=== PATIENT | female | born 1930 | race Hispanic/Latino ===

== ENCOUNTER 2017-07-26 08:00 | Day surgery (SDC) | payer MEDICARE, MEDICAID ==
[2017-07-25 09:20] VITALS: BMI 26.5
[2017-07-26 08:36] LABS: BASO # 0.02 K/mm3 (0.0-2.0); BASO % 0.3 % (0.0-3.0); EOS # 0.1 (0.0-0.7); GRAN # 4.35 (1.4-6.5); GRAN % 71.2 % (50.0-68.0); HEMATOCRIT 40.2 % (36.0-48.0); LYMPH # 1.2 (1.2-3.4); LYMPH % 19.6 % (22.0-35.0); MEAN CELL VOLUME 92.2 fl (80.0-105.0); MEAN CORPUSCULAR HEMOGLOBIN 30.3 pg (25.0-35.0); MEAN CORPUSCULAR HGB CONC 32.8 g/dl (31.0-37.0); MEAN PLATELET VOLUME 10.1 fl (7.0-11.0); MONO # 0.4 (0.1-0.6); MONO % 6.9 % (1.0-6.0); RED CELL DISTRIBUTION WIDTH 13.7 % (11.5-14.5); WHITE BLOOD COUNT 6.1 10^3/ul (4.5-11.0)
[2017-07-26 08:43] LABS: CALCIUM 9.9 mg/dL (8.4-10.5); POTASSIUM 4.6 mmol/L (3.6-5.0)
[2017-07-26 08:44] LABS: INR 1.13 (0.93-1.08); PARTIAL THROMBOPLASTIN TIME 30.1 Seconds (25.1-36.5)
[2017-07-26] MEDS ORDERED: Lidocaine 2% Inj (20ml) ONE (08:45)
[2017-07-26 09:02] VITALS: RESP 18
[2017-07-26] MEDS ORDERED: Midazolam 2 MG/2 ML VIAL ONE (09:25)
[2017-07-26] MEDS ORDERED: Metoprolol 1 mg/ml Inj IVP ONE (10:58)
[2017-07-26 11:28] VITALS: TEMP 97.4
[2017-07-26 14:45] VITALS: O2SAT 96
[2017-07-26 15:13] VITALS: BP 141/53; PULSE 82
--- NOTE | 2017-07-26 19:55 | CARD ---
APPROVED REPORT EKG Measurement Heart [id number] <Conclusion> Normal sinus rhythm Right bundle branch block Left anterior fascicular block Bifascicular block Left ventricular hypertrophy with repolarization abnormality Cannot rule out Septal infarct, age undetermined Abnormal ECG
--- NOTE | 2017-08-10 19:14 | CARD ---
APPROVED REPORT HISTORY 65%. (EF Method: RADIONUCLIDE), peripheral vascular disease, previous diagnostic cath, tobacco history() : The patient is a former smoker , previous PCI (The PCI date was 09/29/2013), hypertension , dyslipidemia . INDICATION The indication(s) include : positive stress test, stable angina , chest pain. CASE TECHNIQUE The patient was brought electively to the Cardiac Catheterization Laboratory in a fasting state and was prepped and draped in a sterile manner. The right femoral groin was infiltrated with 2% Lidocaine subcutaneous anesthesia. A 6 Fr x 11 cm Selena sheath was inserted using coronary diagnostic catheters. The left coronary system was accessed and visualized with a Diagnostic catheter. The right coronary system was accessed and visualized with a Diagnostic catheter. The left ventricle was accessed and visualized with a Diagnostic catheter. Left ventricular/Aortic Valve gradient assessed on pullback. Left ventriculogram was performed in GARCIA projection. Closure device was deployed with a 6 Fr / 7 Fr MynxGrip without any complications. Hemostasis was obtained with manual pressure following sheath removal without any complications. The patient tolerated the procedure well and there were no complications associated with the procedure. Vessel Analysis The patient's coronary anatomy is right dominant. The left main coronary artery is a medium size vessel . There is a 0% stenosis . The left main bifurcates to the left anterior descending and circumflex. The left anterior descending artery is a medium size vessel . There is a 30% stenosis in the mid segment. The first diagonal branch is a small size vessel . The circumflex artery is a small size vessel . There is a 50% stenosis in the distal segment. The right coronary artery is a large size vessel . There is a 30% stenosis in the ostial segment. Patent mid segment stent noted. The right posterior descending artery is a medium size vessel . There is a 30% stenosis in the mid segment. Left Ventricle The left ventricle is normal in size with normal contractility. There was no cardiomyopathy. The left ventricular ejection fraction is estimated to be 60%. The left ventricular end diastolic pressure is 24 mmHg. There was no gradient across the aortic valve upon pullback. Conclusion Mild to moderate CAD with patent RCA stent with normal LVEF of 60% Recommendations Aggressive Medical Therapy
== END 2017-07-26 15:55 | disposition home or self-care (01) ==
LOC: CATH 08:00
PROVIDERS: ATTEND Internal Medicine Cardiovascular Disease
DX: I25.119 Atherosclerotic heart disease of native coronary artery with unspecified angina pectoris (principal); I10 Essential (primary) hypertension; I38 Endocarditis, valve unspecified; I50.9 Heart failure, unspecified; I73.9 Peripheral vascular disease, unspecified; E03.9 Hypothyroidism, unspecified; D64.9 Anemia, unspecified; Z96.642 Presence of left artificial hip joint; E78.5 Hyperlipidemia, unspecified; Z87.891 Personal history of nicotine dependence; Z95.5 Presence of coronary angioplasty implant and graft; Z82.49 Family history of ischemic heart disease and other diseases of the circulatory system; R94.39 Abnormal result of other cardiovascular function study
CPT/HCPCS: 36415; 80048; 80061; 85025; 85610; 85730; 86850; 86900; 93005; 93458; 99152; 99153; C1760; C1769; C2629; J0360; J1644; J2250; J3010; J7040; Q9967

== ENCOUNTER 2018-04-05 14:56 | Observation (INO) | payer MEDICARE, MEDICAID ==
[2018-04-05 15:43] VITALS: BMI 21.3
--- NOTE | 2018-04-05 15:49 | ED PDOC ---
Arrival/HPI - General Historian: Patient, Family - History of Present Illness Time/Duration: 4-6 hours Symptom Onset: Sudden Symptom Course: Unchanged Context: Standing, Exertion <Ovidio Dolan - Last Filed: 04/05/18 18:42> <Antionette Dumont - Last Filed: 04/05/18 18:47> - General Chief Complaint: Syncope Time Seen by Provider: 04/05/18 15:07 - History of Present Illness Narrative History of Present Illness (Text): 04/05/18 15:45 Patient is an 87 year old female with PMH of HTN, hypothyroidism, CAD, and AFib who presents to ED after a fall this morning six hours ago. During the fall this morning, she states that she had a syncopal episode and does not remember falling. She was getting ready to feed her cat at the time and then woke up with her head on the cat bowl. She does not remember anything in between. Two weeks ago, she had a similar fall on to her R side on to a dresser drawer. At that time, she remembered falling; she did not have a syncopal episode. She admits to R sided pain worse with movement and exertion. It is not worsened when she inhales. She also admits to persistent CATALAN and dizziness since her fall this morning. She otherwise denies fever, chills, chest pain, palpitations, SOB , numbness/tingling in her extremities, or other gait difficulties. (Ovidio Dolan) Past Medical History - Provider Review Nursing Documentation Reviewed: Yes - Travel History Have you recently traveled outside [place] w/in the past 3 mons?: No - Infectious Disease Hx of Infectious Diseases: None - Cardiac Hx Pacemaker: No - Pulmonary Hx Respiratory Disorders: No - Neurological Hx Paralysis: No - HEENT Hx HEENT Disorder: Yes Other/Comment: [place] b/l with b/l hearing aids - Renal Hx Renal Disorder: No - Endocrine/Metabolic Hx Endocrine Disorders: No - Hematological/Oncological Hx Blood Transfusions: No Hx Blood Transfusion Reaction: No - Integumentary Hx Dermatological Disorder: No - Musculoskeletal/Rheumatological Hx Musculoskeletal Disorders: No - Gastrointestinal Hx Gastrointestinal Disorders: No - Genitourinary/Gynecological Hx Genitourinary Disorders: No - Psychiatric Hx Emotional Abuse: No Hx Physical Abuse: No Hx Substance Use: No - Surgical History Hx Coronary Stent: Yes - Anesthesia Hx Anesthesia Reactions: No Hx Malignant Hyperthermia: No - Suicidal Assessment Feels Threatened In Home Enviroment: No <Ovidio Dolan - Last Filed: 04/05/18 18:42> Family/Social History - Physician Review Nursing Documentation Reviewed: Yes Family/Social History: No Known Family HX Smoking Status: Never Smoked Hx Alcohol Use: No Hx Substance Use: No <DolanOvidio - Last Filed: 04/05/18 18:42> Allergies/Home Meds <MagdalenoOvidio - Last Filed: 04/05/18 18:42> <MerariantionetteAntionette Leroy - Last Filed: 04/05/18 18:47> Allergies/Adverse Reactions: Allergies No Known Allergies Allergy (Verified 09/21/16 12:38) Home Medications: Home Meds Medication Instructions Recorded Confirmed Levothyroxine Sodium [Levothroid] 0.05 mg PO DAILY 09/18/13 04/05/18 Clopidogrel [Plavix] 75 mg PO DAILY 10/21/15 04/05/18 Aspirin [Ecotrin] 81 mg PO DAILY 07/25/17 04/05/18 Irbesartan [Avapro] 1 tab PO BID 04/05/18 04/05/18 Metoprolol Tartrate [Lopressor] 1 tab PO BID 04/05/18 04/05/18 Review of Systems - Physician Review All systems were reviewed & negative as marked: Yes - Review of Systems Constitutional: absent: Fatigue, Weight Change, Fevers Eyes: absent: Vision Changes, Photophobia ENT: absent: Hearing Changes, Voice Changes Respiratory: absent: SOB, Cough, Sputum Cardiovascular: absent: Chest Pain, Palpitations, Edema Gastrointestinal: absent: Abdominal Pain, Nausea, Vomiting Genitourinary Female: absent: Dysuria Musculoskeletal: Back Pain (R rib pain with palpation, ecchymosis on R side visualized). absent: Arthralgias Skin: absent: Rash, Pruritis Neurological: Headache, Dizziness. absent: Focal Weakness, Gait Changes, Speech Changes, Facial Droop Endocrine: absent: Diaphoresis Hemo/Lymphatic: absent: Adenopathy Psychiatric: absent: Anxiety, Depression <DolanOvidio gabriel - Last Filed: 04/05/18 18:42> Physical Exam Vital Signs Reviewed: Yes Temperature: Afebrile Blood Pressure: Normal Pulse: Other (irregularly irregular, AFib) Respiratory Rate: Normal Appearance: Positive for: Uncomfortable Pain Distress: Moderate Mental Status: Positive for: Alert and Oriented X 3 - Systems Exam Head: Present: Tenderness (tenderness posteriorly), Ecchymosis (posteriorly) Pupils: Present: PERRL Extroacular Muscles: Present: EOMI Conjunctiva: Present: Normal Ears: Present: Normal Mouth: Present: Moist Mucous Membranes Pharnyx: Present: Normal. No: ERYTHEMA, EXUDATE Nose (External): Present: Atraumatic Neck: Present: Normal Range of Motion. No: Paraspinal Tenderness, JVD Respiratory/Chest: Present: Clear to Auscultation. No: Wheezes, Rales, Rhonchi Cardiovascular: Present: Irregular Rhythm (AFib), Peripheal Pulses Present. No : Rub, Gallop Abdomen: No: Tenderness, Rebound, Guarding Upper Extremity: Present: Normal Inspection. No: Cyanosis, Edema Lower Extremity: Present: Normal Inspection. No: Edema Neurological: Present: CN II-XII Intact, Speech Normal, Motor Func Grossly Intact, Normal Sensory Function, Normal 2Pt Descrimination Skin: Present: Warm, Dry Psychiatric: Present: Alert, Oriented x 3 <Ovidio Dolan - Last Filed: 04/05/18 18:42> Vital Signs Temp Pulse Resp BP Pulse Ox 04/05/18 18:28 98.3 F 69 18 169/77 H 100 04/05/18 14:56 98.2 F 108 H 18 105/45 L 95 Medical Decision Making <Ovidio Dolan - Last Filed: 04/05/18 18:42> - Lab Interpretations I have reviewed the lab results: Yes - RAD Interpretation Hand Router Operator: Radiologist - EKG Interpretation Interpreted by ED Physician: Yes Type: 12 lead EKG <Antionette Dumont - Last Filed: 04/05/18 18:47> ED Course and Treatment: 04/05/18 15:53 -Patient found to have AFib on initial EKG -Given history of 2 falls with head trauma, will obtain head CT, rib series -CBC, CMP, PT/PTT, UA (Ovidio Dolan) 04/05/18 In agreement with resident note, which includes further HPI details. Patient was seen and evaluated with resident, came up with plan and treatment together. Patient presents after episode of syncope. EKG shows afib at 119bpm. Trop x 1 negative. Cxray negative. Rib series read by me as negative but will need to follow-up official read 04/05/18 18:08 CT HEAD WITHOUT CONTRAST: Creator : Eve Will MD COMPARISON: 09/21/2016. FINDINGS: HEMORRHAGE:No intracranial hemorrhage. BRAIN: There are moderate chronic microangiopathic changes. There is no mass, mass effect or abnormal extra-axial fluid collection. VENTRICLES: There is mild age-related global parenchymal volume loss and proportionate enlargement of the ventricles and cortical sulci. CALVARIUM: The skull base and calvarium are normal. PARANASAL SINUSES: There is fluid in the left maxillary sinus. The remaining included paranasal sinuses are clear. MASTOID AIR CELLS: Predominantly clear. OTHER FINDINGS: None. IMPRESSION: No acute intracranial abnormality. Moderate chronic microangiopathic changes and mild age-related global parenchymal volume loss. Fluid in the left maxillary sinus may represent acute sinusitis in the appropriate clinical setting. 04/05/18 18:[address] Mcadams 04/05/18 18:47 (Antionette Dumont) - Lab Interpretations Lab Results: 04/05/18 16:14 04/05/18 16:14 Lab Results 04/05/18 16:14: PT 12.2, INR 1.07, APTT 30.7 04/05/18 16:14: WBC 11.0 D, RBC 4.53, Hgb 14.2, Hct 41.6, MCV 91.8, MCH 31.3, MCHC 34.1, RDW 14.0, Plt Count 236, MPV 10.1, Gran % 74.2 H, Lymph % (Auto) 16.0 L, [place] % (Auto) 8.2 H, Eos % (Auto) 1.4 L, Baso % (Auto) 0.2, Gran # 8.19 H, Lymph # (Auto) 1.8, [place] # (Auto) 0.9 H, Eos # (Auto) 0.2, Baso # (Auto) 0.02 04/05/18 16:14: Sodium 146, Potassium 4.9, Chloride 105, Carbon Dioxide 29, Anion Gap 17, BUN 24 H, Creatinine 1.0, Est GFR ( Amer) > 60, Est GFR ( Non-Af Amer) 52, Random Glucose 136 H, Calcium 10.0, Phosphorus 3.5, Magnesium 2.0, Total Bilirubin 0.6, AST 28, ALT 22, Alkaline Phosphatase 69, Lactate Dehydrogenase 653, Total Creatine Kinase 109, Troponin I 0.02 D, Total Protein 7.8, Albumin 4.7, Globulin 3.1, Albumin/Globulin Ratio 1.5 - RAD Interpretation Radiology Orders: 04/05/18 15:43 HEAD W/O CONTRAST [CT] Stat 04/05/18 15:44 RIBS BILATERAL W/PA CHEST [RAD] Stat - Medication Orders Current Medication Orders: Discontinued Medications Acetaminophen (Tylenol 325mg Tab) 650 mg PO ONCE ONE Stop: 04/05/18 16:05 <Ovidio Dolan - Last Filed: 04/05/18 18:42> - Scribe Statement The provider has reviewed the documentation as recorded by the Scribe <Antionette Dumont - Last Filed: 04/05/18 18:47> - Scribe Statement Leonard Hart Provider Scribe Attestation: All medical record entries made by the Scribe were at my direction and personally dictated by me. I have reviewed the chart and agree that the record accurately reflects my personal performance of the history, physical exam, medical decision making, and the department course for this patient. I have also personally directed, reviewed, and agree with the discharge instructions and disposition. (Antionette Dumont) Disposition/Present on Arrival - Present on Arrival History of DVT/PE: No History of Uncontrolled Diabetes: No Urinary Catheter: No History Surgical Site Infection Following: None <Ovidio Dolan - Last Filed: 04/05/18 18:42> - Present on Arrival Any Indicators Present on Arrival: No - Disposition Have Diagnosis and Disposition been Completed?: Yes Disposition Time: 18:31 Patient Plan: Observation <Antionette Dumont - Last Filed: 04/05/18 18:47> - Disposition Diagnosis: Syncope Disposition: HOSPITALIZED Patient Problems: Current Active Problems Problem Status Onset Syncope Acute Condition: FAIR Discharge Instructions (ExitCare): Syncope (ED) Referrals: Saul Toledo DO [Primary Care Provider] - Follow up with primary Forms: [employer] ([place])
[2018-04-05 16:34] LABS: BASO # 0.02 K/mm3 (0.0-2.0); BASO % 0.2 % (0.0-3.0); EOS # 0.2 (0.0-0.7); EOS % 1.4 % (1.5-5.0); GRAN # 8.19 (1.4-6.5); GRAN % 74.2 % (50.0-68.0); HEMOGLOBIN 14.2 g/dL (12.0-16.0); LYMPH # 1.8 (1.2-3.4); MEAN CELL VOLUME 91.8 fl (80.0-105.0); MEAN CORPUSCULAR HEMOGLOBIN 31.3 pg (25.0-35.0); MEAN CORPUSCULAR HGB CONC 34.1 g/dl (31.0-37.0); MEAN PLATELET VOLUME 10.1 fl (7.0-11.0); MONO # 0.9 (0.1-0.6); MONO % 8.2 % (1.0-6.0); RBC 4.53 10^6/uL (3.5-6.1)
[2018-04-05 16:44] LABS: ALB/GLOB RATIO 1.5 (1.1-1.8); ALBUMIN 4.7 g/dL (3.0-4.8); ALT/SGPT 22 U/L (7-56); AST/SGOT 28 U/L (14-36); BLOOD UREA NITROGEN 24 mg/dL (7-21); GFR AFRICAN-AMERICAN > 60; GFR NON-AFRICAN AMERICAN 52
[2018-04-05 16:47] LABS: INR 1.07; PARTIAL THROMBOPLASTIN TIME 30.7 Seconds (25.1-36.5); PROTHROMBIN TIME 12.2 SECONDS (9.4-12.5)
[2018-04-05 16:56] LABS: TROPONIN I 0.02 ng/mL
--- NOTE | 2018-04-05 17:47 | CT ---
Date of service: 04/05/2018 PROCEDURE: CT HEAD WITHOUT CONTRAST. HISTORY: s/p 2 falls with head trauma COMPARISON: 09/21/2016. TECHNIQUE: Axial computed tomography images were obtained through the head/brain without intravenous contrast. Radiation dose: Total exam DLP = 1031.70 mGy-cm. This CT exam was performed using one or more of the following dose reduction techniques: Automated exposure control, adjustment of the mA and/or kV according to patient size, and/or use of iterative reconstruction technique. FINDINGS: HEMORRHAGE: No intracranial hemorrhage. BRAIN: There are moderate chronic microangiopathic changes. There is no mass, mass effect or abnormal extra-axial fluid collection. VENTRICLES: There is mild age-related global parenchymal volume loss and proportionate enlargement of the ventricles and cortical sulci. CALVARIUM: The skull base and calvarium are normal. PARANASAL SINUSES: There is fluid in the left maxillary sinus. The remaining included paranasal sinuses are clear. MASTOID AIR CELLS: Predominantly clear. OTHER FINDINGS: None. IMPRESSION: No acute intracranial abnormality. Moderate chronic microangiopathic changes and mild age-related global parenchymal volume loss. Fluid in the left maxillary sinus may represent acute sinusitis in the appropriate clinical setting.
[2018-04-05] MEDS ORDERED: Fluticasone Nasal 50 mcg/Spray NS STA (19:32)
[2018-04-05] MEDS: Sodium Chloride 0.45% 1,000 ML IV SCH ×2 (19:40→22:56)
[2018-04-05 19:51] LABS: URINE APPEARANCE CLEAR (CLEAR); URINE COLOR YELLOW (YELLOW); URINE GLUCOSE (UA) NEGATIVE (NEGATIVE)
[2018-04-05 19:52] LABS: URINE BILIRUBIN NEGATIVE (NEGATIVE); URINE BLOOD NEGATIVE (NEGATIVE); URINE LEUKOCYTE ESTERASE SMALL Leu/uL (NEGATIVE); URINE PROTEIN TRACE mg/dL (<30 mg/dL); URINE UROBILINOGEN 0.2 E.U./dL (<1 E.U./dL)
[2018-04-05 20:01] LABS: URINE BACTERIA FEW (NEG); URINE RBC NEGATIVE /hpf (0-2)
[2018-04-05] MEDS: Insulin Reg-MEDIUM-Coverage SC SCH (23:11)
[2018-04-06 06:17] LABS: MEAN CELL VOLUME 92.2 fl (80.0-105.0); MEAN CORPUSCULAR HEMOGLOBIN 30.3 pg (25.0-35.0); MEAN CORPUSCULAR HGB CONC 32.9 g/dl (31.0-37.0); MEAN PLATELET VOLUME 10.4 fl (7.0-11.0); RBC 3.96 10^6/uL (3.5-6.1); RED CELL DISTRIBUTION WIDTH 13.9 % (11.5-14.5); WHITE BLOOD COUNT 6.5 10^3/ul (4.5-11.0)
[2018-04-06 06:44] LABS: ALB/GLOB RATIO 1.5 (1.1-1.8); ALBUMIN 3.8 g/dL (3.0-4.8); ALT/SGPT 32 U/L (7-56); AST/SGOT 26 U/L (14-36); BLOOD UREA NITROGEN 25 mg/dL (7-21); CALCIUM 9.1 mg/dL (8.4-10.5); GFR AFRICAN-AMERICAN > 60; GFR NON-AFRICAN AMERICAN 59
[2018-04-06 07:03] VITALS: O2SAT 95
--- NOTE | 2018-04-06 07:13 | HP ---
Copied To: Raymundo Mcadams DO Attending MD: Raymundo Mcadams DO HISTORY OF PRESENT ILLNESS: I was called down to the emergency room, so we put her in the hospital. She is an 87-year-old white female who presented to the emergency room with a fall 6 hours earlier in the morning. She had a syncopal episode, does not remember falling. She remembers leaning to feed her cat, bent over, and the next thing she knows she was on the ground. She had had a similar fall in the past. She tells me she feels well from the neck down; but from the neck up, she does not feel well. She has had a headache after the dizziness. PAST MEDICAL HISTORY: She has a past medical history of hypertension, hypothyroid, CAD, atrial fibrillation. She is [id number], she wears bilateral hearing aids. She has a chronic buzz in her ears. She has had coronary stents placed in the past. FAMILY HISTORY: Hypertension in the family. SOCIAL HISTORY: Never smoked. No alcohol. No drugs. ALLERGIES: NO KNOWN DRUG ALLERGIES. MEDICATIONS: She takes levothyroxine for hypothyroidism, Plavix, Ecotrin, Avapro for hypertension, and Lopressor. REVIEW OF SYSTEMS: No fatigue. No weight changes. No fevers. No vision changes. No photophobia. No hearing changes. No voice changes. No shortness of breath, cough, or sputum. No chest pain, palpitations or edema. No abdominal pain, nausea, or vomiting. No problems urinating. She has a right rib pain with palpation with ecchymoses on the right side. X-rays are pending. She has no rashes or ulcers. She has a headache and dizziness. No focal weakness. No vision changes. No speech changes. No facial droop. No sweating. No adenopathy. No skin issues. No depression or anxiety. PHYSICAL EXAMINATION: VITAL SIGNS: She has a 98.3 temperature, 108 pulse, 18 respiratory rate, 105/45 blood pressure, 95% O2 sat. Her heart is irregular, has AFib. GENERAL: Appearance is uncomfortable. She is a little bit distressed. Alert and oriented x3. Aware of her situation. HEENT: Head has tenderness posteriorly with ecchymoses. Extraocular muscles are intact. Pupils equal and reactive to light. Throat is moist. NECK: Supple. HEART: Irregular rate. LUNGS: Decreased breath sounds, but clear to auscultation. ABDOMEN: Soft, nontender. Positive bowel sounds. No guarding, no rebound, no CVA tenderness. EXTREMITIES: No edema of the extremities. She can move all four extremities well. NEUROLOGIC: GCS is 15. Cranial nerves II-XII grossly intact. Speech is normal. Normal motion and strength. She is alert and oriented. SKIN: Warm and dry. No apparent rashes or ulcers. Some ecchymoses over the posterior part of her head. LYMPHATICS: Thyroid is midline. No palpable lymphadenopathy. LABORATORY DATA: She had multiple tests that were done. CAT scan showed no intracranial hemorrhage of the brain. Some chronic changes, maybe a maxillary sinus fluid. She had lots of lab tests done. She has 146 sodium, potassium 4.9, BUN 24, creatinine 1. GFR is 62, sugar is 136, calcium is 10. I will check her blood sugars and IV fluids. Calcium is 10, phosphorous 2.5, magnesium 2, total bili is 0.6, AST is 28, ALT is 22, alk phos 69. Lactate dehydrogenase is 653, total creatinine kinase is 102. Troponin I is 0.02. Total protein is 7.8, albumin is 4.7. Globulin is 3.1. INR is 1.07. White count 11, 14.2 hemoglobin, 41.6 hematocrit, with 236 platelets. Rib x-rays are pending. ASSESSMENT AND PLAN: We will await for the results. She will have consults with Cardiology and Neurology. I will put her back on IV fluids and her medications. We are checking her labs. Ordered physical therapy, MRI of the brain, carotid Dopplers, Flonase, oxygen, and hopefully she will do well with insulin coverage and physical therapy. Raymundo Mcadams DO
[2018-04-06] MEDS: Insulin Reg-MEDIUM-Coverage SC SCH ×3 (07:52→17:00)
--- NOTE | 2018-04-06 08:32 | RAD ---
Date of service: 04/05/2018 PROCEDURE: Radiographs of the chest and bilateral ribs HISTORY: s/p fall with pain on R side COMPARISON: None available. TECHNIQUE: Frontal radiograph of the chest and multiple oblique radiographs of the bilateral ribs were obtained. FINDINGS: RIGHT RIBS: No acute fracture or focal lesion visualized. LEFT RIBS: No acute fracture or focal lesion visualized. LUNGS: The lungs are well inflated and clear. PLEURA: No pneumothorax or pleural fluid. CARDIOVASCULAR: Normal sized heart. No pulmonary vascular congestion. OTHER FINDINGS: None. IMPRESSION: Clear lungs. No acute rib fracture.
--- NOTE | 2018-04-06 09:02 | DS ---
Copied To: Raymundo Mcadams DO Attending MD: Raymundo Mcadams DO She is resting comfortably in bed this morning with dizziness and headache and lightheadedness went away. I am waiting for Neuro to see her certified residential medication aide to see her; waiting for the MRI to report, she had it done, waiting for Physical Therapy to see her and then, we will have a better idea of where we are at, but in the meantime, she slept well. She is doing better. She is alert and comfortable. PHYSICAL EXAMINATION: VITAL SIGNS: She has a 98.2 temperature, 67 pulse, 171/67 blood pressure, 20 respiratory rate, 95% O2 sat on nasal cannula. HEENT: Head is atraumatic, normocephalic. Extraocular muscles are intact. Throat is moist. NECK: Supple. HEART: Regular rate. LUNGS: Decreased breath sounds, but clear. ABDOMEN; Soft. EXTREMITIES: No edema. She is currently on Cozaar, Ecotrin, Lopressor, Plavix, IV fluids and Synthroid. She has a white count 6.5, hemoglobin 12, hematocrit 36.5, platelets of 187. She has a 144 sodium, potassium 4.1, BUN 25, creatinine 0.9. GFR is greater than 60. Sugar is 96, calcium is 9.1, total bili is 0.7, AST is 26, ALT is 32, alkaline phosphatase 61. Total protein 6.3. Urine was small, so when I get the consult from Neuro and Cardio and the MRI report; if everybody seems to be on the same page, we have a good chance of discharging this young lady, Corinna Macdonald, today. She had a syncopal type of situation with history of CAD, await for the Cardiology and Neurology to see her. Hopefully, they will discharge her later today. Raymundo Mcadams DO
[2018-04-06] MEDS ORDERED: IRBESARTAN PO SCH (10:00)
[2018-04-06] MEDS ORDERED: Levothyroxine 50 MCG TAB PO SCH (10:00)
--- NOTE | 2018-04-06 10:08 | MRI ---
Date of service: 04/05/2018 PROCEDURE: MRI BRAIN WITHOUT CONTRAST HISTORY: syncope COMPARISON: None available. TECHNIQUE: Multiplanar, multisequence MR images of the brain were obtained without intravenous contrast enhancement. FINDINGS: HEMORRHAGE: None DWI: No evidence of an acute or early subacute infarction. BRAIN PARENCHYMA: No mass effect or edema. Severe chronic microvascular changes are seen in the periventricular and deep white matter. VENTRICLES: Unremarkable. No hydrocephalus. CRANIUM: Unremarkable. ORBITS: Grossly unremarkable. PARANASAL SINUSES/MASTOIDS: Clear VASCULAR SYSTEM: Skull base flow voids intact. OTHER FINDINGS: None. IMPRESSION: No acute intracranial findings
--- NOTE | 2018-04-06 10:37 | US ---
PROCEDURE: Bilateral carotid artery duplex ultrasound HISTORY: Carotid stenosis syncope PHYSICIAN(S): Buddy Martin MD. TECHNIQUE: Duplex sonography and color-flow Doppler were used to evaluate the carotid bifurcations and limited segments of the vertebral arteries bilaterally. FINDINGS: There is the moderate to extensive heterogeneous echogenic plaque noted at the carotid bifurcations bilaterally, greater on the left than the right. The peak systolic velocity in the proximal right internal carotid artery is 147 cm/sec. This corresponds to a 40-59 percent proximal right ICA stenosis. Mildly elevated systolic velocities are noted in the proximal right external carotid artery. There is antegrade flow in the right vertebral artery. Evaluation of the left carotid bifurcation is somewhat limited by shadowing. Elevated velocities to 254 cm/second are noted in the left bulb. The peak systolic velocity in the proximal left internal carotid artery is 196 cm/sec. This corresponds to a 60-79 percent proximal left ICA stenosis. Moderately elevated systolic velocities are noted in the proximal left external carotid artery. There is antegrade flow in the left vertebral artery. IMPRESSION: 1. 60-79 percent proximal left ICA stenosis. Elevated velocities are also noted in the left carotid bulb. If necessary, this can be confirmed with CTA, MRA, or conventional arteriography. 2. 40-59 percent proximal right ICA stenosis. 3. Antegrade flow in both vertebral arteries.
[2018-04-06] MEDS ORDERED: Iohexol 350 MG/100 ML VIAL ONE (11:52)
[2018-04-06 11:53] VITALS: BP 162/73; RESP 18; TEMP 98.6
--- NOTE | 2018-04-06 13:12 | CT ---
Date of service: 04/06/2018 PROCEDURE: CT Angiography of the neck with contrast HISTORY: SYNCOPE COMPARISON: Report of Doppler ultrasound 04/06/2018 which reported a 60-79 percent stenosis of the left ICA and 40-59 percent of the right ICA TECHNIQUE: Contiguous axial images of the neck were obtained from the level of the skull-base to the superior mediastinum in the arteriographic phase of enhancement. Coronal and sagittal reformats or also generated. IV contrast dose: 100 cc of Omni 350 Radiation Dose - DLP: 408 mGy-cm This CT exam was performed using one or more of the following dose reduction techniques: Automated exposure control, adjustment of the mA and/or kV according to patient size, and/or use of iterative reconstruction technique. FINDINGS: RIGHT CAROTID ARTERIES: There is focal dilatation of the proximal internal carotid with mural calcifications. There is a mild degree of stenosis. Multiple surgical clips are seen on the right side of the neck LEFT CAROTID ARTERIES: There is a heavily calcified plaque in the left internal carotid with moderate to severe stenosis. This corresponds to the ultrasound report. VERTEBRAL ARTERIES: Right Vertebral Artery: Normal. Left Vertebral Artery: Normal. OTHER FINDINGS: None. IMPRESSION: Mild stenosis of the right internal carotid. Moderate to severe stenosis of the left internal carotid PROCEDURE: CT Angiography of the Brain. HISTORY: SYNCOPE COMPARISON: None available. TECHNIQUE: CT angiography of the intracranial arteries was performed. Coronal and sagittal maximum intensity projection reformated images were generated. This CT exam was performed using one or more of the following dose reduction techniques: Automated exposure control, adjustment of the mA and/or kV according to patient size, and/or use of iterative reconstruction technique. FINDINGS: INTERNAL CEREBRAL ARTERIES: Unremarkable. The skull base, petrous, cavernous and supraclinoid segments are bilaterally widely patent. ANTERIOR CEREBRAL ARTERIES: Unremarkable. A1 and A2 segments are widely patent. Smaller distal branches unremarkable, as visualized. MIDDLE CEREBRAL ARTERIES: Unremarkable. M1 and M2 segments are widely patent. Perisylvian branches grossly symmetric. POSTERIOR CIRCULATION: Basilar Artery: Unremarkable. Distal Vertebral Arteries: Unremarkable. Posterior Cerebral Arteries: Unremarkable. Posterior Inferior Cerebellar Arteries: Unremarkable. ANEURYSM/ VASCULAR MALFORMATIONS: None. OTHER FINDINGS: None. IMPRESSION: Unremarkable CT Angiography of the Brain.
--- NOTE | 2018-04-06 15:15 | CARD ---
APPROVED REPORT Date of service: 04/05/2018 EKG Measurement Heart [id number] <Conclusion> Atrial fibrillation with rapid ventricular response Incomplete right bundle branch block Left anterior fascicular block Voltage criteria for left ventricular hypertrophy Marked ST abnormality, possible lateral subendocardial injury Abnormal ECG
--- NOTE | 2018-04-06 15:18 | CARD ---
APPROVED REPORT Date of service: 04/06/2018 EKG Measurement Heart [id number] <Conclusion> Normal sinus rhythm Right bundle branch block Left anterior fascicular block Bifascicular block Left ventricular hypertrophy with repolarization abnormality Cannot rule out Septal infarct, age undetermined Abnormal ECG
--- NOTE | 2018-04-06 17:34 | CON ---
Copied To: Elvin Avendano MD Attending MD: Elvin Avendano MD DATE: 04/06/2018 REASON FOR DICTATION: Dr. Toledo asked me to cover him to see this patient. REASON FOR CONSULTATION: Status post fall, rule out syncope. BRIEF CLINICAL HISTORY: This is an 87-year-old female with past medical history significant for coronary artery disease, status post stent in right coronary artery by Dr. Toledo, history of paroxysmal atrial fibrillation, hypothyroidism, history of PAD, status post bilateral iliac stent, status post left SFA stent, hard of hearing, wears the hearing aid, came in with complaint of fall yesterday, possibly syncope. The patient does not have recollection at that time. The patient was found to be in atrial fibrillation with rapid rate of 120 to 130, atrial flutter, which converted to normal sinus. PAST MEDICAL HISTORY: History of hypertension, hypothyroidism, coronary artery disease, stent in RCA, history of peripheral arterial disease, history of bilateral common iliac stenting, history of SFA stenting. FAMILY HISTORY: Nonsignificant. SOCIAL HISTORY: Denies any smoking. Denies any history of alcohol abuse. CURRENT MEDICATIONS: Levothyroxine for hypothyroidism, Plavix, aspirin, Avapro, and Lopressor 25 p.o. b.i.d. REVIEW OF SYSTEMS: As per HPI. RECENT CARDIAC WORKUP: The patient had echo done in Dr. Toledo's office, 03/02/2018 that shows normal LV function. No significant valvular heart disease. No , no significant MR, ejection fraction preserved, normal RV dated 03/02/[address] Toledo's office. PHYSICAL EXAMINATION: VITAL SIGNS: As follows: Height of the patient 5 feet 6 inches, weight of the patient 159, body mass index 25.7 kg/m2. Temperature afebrile, heart rate 69, blood pressure 162/73. HEENT: PERRLA, intact. NECK: Supple. No carotid bruits or thyromegaly. CHEST: Clear to auscultation. HEART: S1 and S2 regular. ABDOMEN: Soft. EXTREMITIES: Clubbing and cyanosis negative. LABORATORY DATA: Blood workup as follows: WBC 6.5, hemoglobin 12, hematocrit 36.5, platelet count 187. Chemistry shows sodium 144, potassium 4, chloride 108, carbon dioxide 26, anion gap of 13, BUN 25, creatinine 0.9. Troponin 0.02, negative. EKG on admitting shows atrial flutter, rate of 120 with variable conduction. IMPRESSION: An 87-year-old female with past medical history significant for coronary artery disease, status post percutaneous transluminal coronary angioplasty of right coronary artery, right coronary artery by Dr. Toledo, history of chronic obstructive pulmonary disease, status post bilateral common iliac stenting up to the aorta, history of left superficial femoral artery stenting, hard of hearing, status post fall after having dizzy, history of chronic dizziness, history of ringing in the ear and then the patient felt dizzy and then used to fall, feels that she is going to pass out, then she becomes dizzy and she fell down. The patient has history of paroxysmal atrial fibrillation, well maintained on Multaq, but later on the patient stopped herself. Discussed in length with Dr. Toledo, though overall the patient's previous clinical condition and recent test was done. As mentioned, the patient had echo done on 03/02/2018 that shows ejection fraction preserved. No significant valvular disease. Normal left ventricle, normal right ventricle, history of paroxysmal atrial fibrillation, was maintained on Multaq, which the patient stopped, was taking Avapro and metoprolol, aspirin and Plavix. RECOMMENDATIONS: We will do orthostatic hypotension to make sure the patient is not orthostatic. p.r.n. hydralazine, resume previous medication and start amiodarone 400 mg stat and then 200 mg daily. The patient converted to normal saline spontaneously, so we will repeat EKG. If the pain is stable, the patient will be discharged. Followup with Dr. Toledo. Discussed with the patient. Discussed with Dr. Toledo. Thank you, Dr. Mcadams, for providing us the opportunity in taking care of the patient, Corinna Macdonald. Elvin Avendano MD
--- NOTE | 2018-04-06 18:21 | CON ---
Copied To: Fam Menard MD Attending MD: Fam Menard MD DATE: 04/06/2018 NEUROLOGY CONSULT CHIEF COMPLAINT: Syncope. HISTORY OF PRESENT ILLNESS: This is an 87-year-old woman with history of right carotid endarterectomy, history of hypertension, hypothyroidism, coronary artery disease, AFib, on Eliquis, who presented after a fall and states that she had a syncopal event, does not remember a thing. She remembers getting ready to feed her cat and then woke up next to the bowl. No seizure-like events. No history of seizures in the past. She had a carotid Doppler, which showed left ICA stenosis and mild right ICA stenosis. The CT angio of the head and neck showed moderate to severe stenosis of the left internal carotid and mild stenosis on the right ICA and no atherosclerotic disease in the cerebral vessels. Currently, she is doing much better and is not complaining of any dizziness. PAST MEDICAL HISTORY: As above. SOCIAL HISTORY: No illicit drug use, smoking or EtOH abuse. ALLERGIES: NO KNOWN DRUG ALLERGIES. MEDICATIONS: Reviewed by nurse reconciliation sheet. FAMILY HISTORY: Noncontributory. REVIEW OF SYSTEMS: Fourteen-point review of systems is negative except as per the HPI. LABORATORY DATA: Today's labs: Sodium 144, potassium 4.1, chloride of 108, carbon dioxide of 27, BUN of 25, creatinine 0.9, random glucose of 96. PHYSICAL EXAMINATION: GENERAL: The patient is sitting up in bed, in no acute distress. HEENT: Atraumatic, normocephalic. PERRLA. Extraocular muscles intact. NECK: Supple. No JVD, no adenopathy noted. LUNGS: Clear to auscultation. No adventitious sounds. HEART: S1, S2. Normal rate and rhythm. No murmurs, rubs or gallops. ABDOMEN: Soft, nontender and nondistended. Bowel sounds are present. EXTREMITIES: No clubbing. No cyanosis. Peripheral pulses 2+ felt bilaterally. NEUROLOGIC: The patient is alert and oriented to person, place, month and year. Speech is fluent without any errors. Cranial nerves II through XII intact. Motor exam: Moves all extremities equally. Toes are downgoing bilaterally. DTRs are 2+ throughout, 1 at both knees and ankles. Coordination: [id number] intact. No dysmetria noted. Gait is deferred for now. VITAL SIGNS: Reviewed and within normal limits except for mildly hypertensive. Orthostatic vital signs are negative. ASSESSMENT AND PLAN: This is an 87-year-old woman with history of hypertension; hypothyroidism; coronary artery disease; atrial fibrillation, on Eliquis and also on baby aspirin; history of right carotid endarterectomy, who presented with syncopal event. Her syncopal event could be secondary to situational syncope versus coronary artery disease given her left internal carotid artery stenosis. 1. At this time, we will continue with medical management with aspirin of 81, Lipitor of 40 for stroke prevention and continue Eliquis for underlying atrial fibrillation. 2. Keep adequate hydration throughout the day. Will follow up with me as an outpatient in regards to reevaluation for left internal carotid artery stenosis. Once again, she is clinically stable. Thank you for this consult. Fam Menard MD
[2018-04-06 20:07] VITALS: PULSE 66
== END 2018-04-06 21:42 | disposition home or self-care (01) ==
LOC: ED 14:56 → ERH 18:32 → 2RNO 21:25
PROVIDERS: ADMIT Family Medicine; ATTEND Family Medicine
DX: R42 Dizziness and giddiness (principal); R51 Headache; I10 Essential (primary) hypertension; I25.10 Atherosclerotic heart disease of native coronary artery without angina pectoris; E03.9 Hypothyroidism, unspecified; I48.0 Paroxysmal atrial fibrillation; H91.90 Unspecified hearing loss, unspecified ear; I48.92 Unspecified atrial flutter; I65.23 Occlusion and stenosis of bilateral carotid arteries; I73.9 Peripheral vascular disease, unspecified; J44.9 Chronic obstructive pulmonary disease, unspecified; W19.XXXA Unspecified fall, initial encounter; Z79.01 Long term (current) use of anticoagulants; Z79.02 Long term (current) use of antithrombotics/antiplatelets; Z79.82 Long term (current) use of aspirin; Z82.49 Family history of ischemic heart disease and other diseases of the circulatory system; Z95.5 Presence of coronary angioplasty implant and graft
CPT/HCPCS: 36415; 70450; 70496; 70498; 70551; 71111; 80053; 81001; 82550; 82948; 83615; 83735; 84100; 84443; 84484; 85025; 85027; 85610; 85730; 87086; 93005; 93880; 97116; 97161; 99285; G0378; G8978; G8979; J7030; Q9967